=== PATIENT | male | born 1965 | race Caucasian/White ===

== ENCOUNTER 2019-05-06 15:22 | Outpatient (CLI) | payer OTHER ==
[2019-05-06] MEDS ORDERED: OMEP20TA62 PO (15:46)
[2019-05-06] MEDS ORDERED: TRIA10.8 NS (15:46)
[2019-05-06 16:23] LABS: BASOPHILS # (AUTO) 0.03 x10^3/uL (0-0.1); BASOPHILS % (AUTO) 0 % (0-1); EOSINOPHILS # (AUTO) 0.09 x10^3/uL (0-0.4); EOSINOPHILS % (AUTO) 1 % (1-7); LYMPHOCYTES # (AUTO) 1.62 x10^3/uL (1-3.4); LYMPHOCYTES % (AUTO) 22 % (22-44); MD NO; MEAN CORPUSCULAR HGB CONC 33.4 g/dL (33.2-36.2); MEAN PLATELET VOLUME 6.9 fL (7.4-10.4); MONOCYTES # (AUTO) 0.71 x10^3/uL (0.2-0.8); MONOCYTES % (AUTO) 10 % (2-9); NEUTROPHILS # (AUTO) 4.97 x10^3/uL (1.8-6.8); NEUTROPHILS % (AUTO) 67 % (42-75); PLATELET COUNT 268 x10^3/uL (130-400); RED BLOOD COUNT 5.75 x10^6/uL (4.38-5.82); RED CELL DISTRIBUTION WIDTH 13.1 % (9.4-14.8)
[2019-05-06 16:30] LABS: ANION GAP 8 mmol/L (5-15); CHLORIDE 104 mmol/L (98-107)
[2019-05-06 16:35] LABS: INTERNATIONAL NORMALIZED RATIO 1.02 (0.93-1.1); PROTHROMBIN TIME 10.7 Seconds (9.6-11.5)
[2019-05-06 16:41] LABS: HEMOGLOBIN A1C 5.2 % (4.2-6.3)
== END 2019-05-06 23:59 | disposition home or self-care (01) ==
LOC: STAR 15:22
PROVIDERS: ATTEND Orthopaedic Surgery
DX: Z01.818 Encounter for other preprocedural examination (principal); M17.12 Unilateral primary osteoarthritis, left knee; M17.11 Unilateral primary osteoarthritis, right knee
CPT/HCPCS: 36415; 80048; 83036; 85025; 85610; 85730; 87081; 87147; 87389

== ENCOUNTER 2019-05-10 05:39 | Day surgery (SDC) | payer OTHER ==
[~2019-05-10] VITALS: Ht 185.4 cm; Wt 85.6 kg
[~2019-05-10 05:39] MED LIST: OMEP20TA62 PO; TRIA10.8 NS
[2019-05-10] MEDS ORDERED: LACTATED RINGERS 1,000 ML IV SCH (06:05)
[2019-05-10 06:22] VITALS: BP 125/80
[2019-05-10] MEDS ORDERED: TRANEXAMIC ACID 100 MG/ML, 10ML ONE ×4 (06:29)
[2019-05-10] MEDS ORDERED: KETOROLAC 60 MG/2 ML ONE (06:29)
[2019-05-10] MEDS ORDERED: EPINEPHRINE 1 MG/ML, 1ML ONE (06:30)
[2019-05-10] MEDS ORDERED: GABAPENTIN 300 MG CAPSULE PO ONE (06:30)
[2019-05-10] MEDS ORDERED: ROPIvacaine/PF 0.2%, 20 ML ONE (06:30)
[2019-05-10] MEDS ORDERED: LIDOCAINE-MPF 1%, 2ML INFIL ONE (06:30)
[2019-05-10] MEDS ORDERED: ACETAMINOPHEN 500 MG TABLET PO ONE (06:30)
[2019-05-10] MEDS ORDERED: SODIUM CHLORIDE 0.9% 50 ML ONE (06:30)
[2019-05-10] MEDS ORDERED: MIDAZOLAM 1 MG/ML, 2ML ONE (06:46)
[2019-05-10] MEDS ORDERED: FENTANYL PF 250 MCG/5ML ONE ×2 (06:46→07:37)
[2019-05-10] MEDS ORDERED: ACETAMINOPHEN 650 MG/20.3 ML UDC PO PRN (07:00)
[2019-05-10] MEDS ORDERED: DIPHENHYDRAMINE 50 MG/ML, 1ML IVPush PRN (07:00)
[2019-05-10] MEDS ORDERED: CEFAZOLIN PMX 1GM/50ML 50 ML IVPB SCH ×2 (07:00→15:00)
[2019-05-10] MEDS ORDERED: ACETAMINOPHEN 325 MG TABLET PO PRN (07:00)
[2019-05-10] MEDS ORDERED: OXYcodone IR 5MG TABLET PO PRN (07:00)
[2019-05-10] MEDS ORDERED: ALUMINUM/MAG/SIMETHICONE 30 ML UDC PO PRN (07:00)
[2019-05-10] MEDS ORDERED: ONDANSETRON 4 MG TABLET PO PRN (07:00)
[2019-05-10] MEDS ORDERED: DIPHENHYDRAMINE 25 MG CAPSULE PO PRN (07:00)
[2019-05-10] MEDS ORDERED: DEXAMETHASONE 4 MG/ML, 1ML IVPush ONE (07:00)
[2019-05-10] MEDS ORDERED: BISACODYL 10 MG SUPP PR PRN (07:00)
[2019-05-10] MEDS ORDERED: KETOROLAC 30 MG/1 ML IV SCH ×2 (07:00→15:00)
[2019-05-10] MEDS ORDERED: PROMETHAZINE 25 MG/ML, 1ML IM PRN (07:00)
[2019-05-10] MEDS ORDERED: HYDROmorphone 2 MG/ML, 1ML IVPush PRN (07:00)
[2019-05-10] MEDS ORDERED: MAGNESIUM HYDROXIDE 8%, 30ML UDC PO PRN (07:00)
[2019-05-10] MEDS ORDERED: POLYETHYLENE GLYCOL 17 GM PACKET PO PRN (07:00)
[2019-05-10] MEDS ORDERED: SENNA/DOCUSATE TABLET PO PRN (07:00)
[2019-05-10] MEDS ORDERED: ONDANSETRON 2MG/ML, 2ML IV PRN (07:00)
[2019-05-10] MEDS ORDERED: CEFAZOLIN 1,000 MG ONE (07:06)
[2019-05-10] MEDS ORDERED: DEXAMETHASONE 4 MG/ML, 1ML ONE (07:06)
[2019-05-10] MEDS ORDERED: ONDANSETRON 2MG/ML, 2ML ONE (07:06)
[2019-05-10] MEDS ORDERED: PROPOFOL 10 MG/ML, 20ML ONE (07:06)
[2019-05-10] MEDS ORDERED: ROCURONIUM 10 MG/ML,10ML ONE (07:06)
[2019-05-10] MEDS ORDERED: hydrALAzine 20 MG/ML, 1ML ONE (07:06)
[2019-05-10] MEDS ORDERED: SUCCINYLCHOLINE 20 MG/ML, 10ML ONE (07:06)
[2019-05-10] MEDS ORDERED: hydrALAzine 20 MG/ML, 1ML IV PRN (08:00)
[2019-05-10] MEDS ORDERED: ONDANSETRON 2MG/ML, 2ML IVPush PRN (08:00)
[2019-05-10] MEDS ORDERED: ALBUTEROL SULFATE 2.5 MG/3 ML NPPB PRN (08:00)
[2019-05-10] MEDS ORDERED: METOCLOPRAMIDE 5 MG/ML, 2ML IV PRN (08:00)
[2019-05-10] MEDS ORDERED: MEPERIDINE/PF 25MG/0.5ML IVPush PRN (08:00)
[2019-05-10] MEDS ORDERED: LABETALOL 5MG/ML, 20ML IV PRN (08:00)
[2019-05-10] MEDS ORDERED: HYDROmorphone 2 MG/ML, 1ML IV PRN (08:00)
[2019-05-10] MEDS ORDERED: KETOROLAC 30 MG/1 ML IV PRN (08:00)
[2019-05-10] MEDS ORDERED: PROMETHAZINE 25 MG/ML, 1ML IV PRN (08:00)
[2019-05-10] MEDS ORDERED: OXYcodone 5 MG/5 ML ORAL.SOL UDC PO PRN (08:00)
[2019-05-10] MEDS ORDERED: FENTANYL PF 100 MCG/2ML IV PRN (08:00)
[2019-05-10] MEDS ORDERED: DOCUSATE 100 MG CAPSULE PO SCH (09:00)
[2019-05-10] MEDS ORDERED: TAMSULOSIN 0.4 MG CAP.ER.24H PO SCH (09:00)
[2019-05-10] MEDS ORDERED: FLUTICASONE NASAL SPRAY 16GM NAS PRN (10:00)
[2019-05-10] MEDS ORDERED: TRANEXAMIC ACID 1,000 MG in SODIUM CHLORIDE 0.9% 100 ML IVPB ONE (10:00)
[2019-05-10] MEDS ORDERED: POTASSIUM CHLORIDE 20 MEQ in D5%-0.45% NACL 1,000 ML IV SCH (12:00)
[2019-05-10 12:42] VITALS: BP 116/71
[2019-05-10] MEDS ORDERED: ASPI81TA45 PO (15:29)
[2019-05-10 16:15] VITALS: BP 104/66
[2019-05-10] MEDS ORDERED: ASPIRIN 81 MG TABLET EC PO SCH (18:00)
[2019-05-11] MEDS ORDERED: DEXAMETHASONE 4 MG/ML, 1ML IVPush ONE (06:00)
[2019-05-11] MEDS ORDERED: OMEPRAZOLE 20 MG CAPSULE.DR PO SCH (06:00)
== END 2019-05-10 17:10 | disposition home or self-care (01) ==
LOC: SDC 05:39 → 4NE 09:38 → EDSTATUS 16:30 → DCLOUNGE 17:00 → SDC 17:10
PROVIDERS: ATTEND Orthopaedic Surgery
DX: M17.12 Unilateral primary osteoarthritis, left knee (principal)
CPT/HCPCS: 27447; 64447; 73560; 97161; C1713; C1776; J0171; J0330; J0360; J0690; J1100; J1885; J2250; J2405; J2704; J2795; J3010; J3480; J7120